=== PATIENT | male | born 1975 | race Caucasian/White ===

== ENCOUNTER 2018-06-03 06:06 | Inpatient (IN) | payer OTHER ==
[2018-06-03] MEDS ORDERED: NS 1,000 ML IV ONE ×4 (06:08→15:58)
[2018-06-03] MEDS ORDERED: DEXAMETHASONE 10 MG/ML VIAL IVP ONE (06:08)
[2018-06-03] MEDS ORDERED: KETOROLAC 15 MG/1 ML SDV ONE (06:08)
[2018-06-03] MEDS ORDERED: KETOROLAC 15 MG/1 ML SDV IVP ONE (06:08)
[2018-06-03] MEDS ORDERED: ONDANSETRON 4 MG/2 ML VIAL IVP ONE ×2 (06:08→08:52)
[2018-06-03] MEDS ORDERED: HYDROmorphONE/DILAUDID 1 MG/ML INJ ONE (06:08)
[2018-06-03] MEDS ORDERED: HYDROmorphONE/DILAUDID 2 MG/ML INJ IVP ONE ×3 (06:08→08:41)
--- NOTE | 2018-06-03 06:12 | EDPHY ---
H & P Source: Patient, EMS Time Seen by Provider: 06/03/18 06:09 HPI/ROS: HPI CHIEF COMPLAINT: Lumbar back pain. HISTORY OF PRESENT ILLNESS: 43-year-old male, otherwise healthy without any significant medical history presents emergency room with lumbar back pain. Patient states this started approximately an hour ago at 5:00 a.m. He woke from sleep. It is sharp stabbing rather constant lumbar region paravertebral on the left side. It does not radiate down his left leg. It does not go to his groin. It does not radiate to his abdomen. Patient states this started spontaneously and woke him from sleep. He denies any chest pain shortness of breath, denies any abdominal pain. Main complaint severe sharp stabbing lumbar back pain paravertebral on the left side. He has never had this before Patient does state he was playing basketball last night and did have occlusion with another player where he struck his knee against their knee. But at that time had no back pain. Here in emergency room he has no fever, no saddle anesthesia, no leg weakness, no numbness or tingling. Past Medical History: Denies medical history Past Surgical History: Denies surgical history Social History: Denies drugs alcohol tobacco. Family History: Noncontributory ROS REVIEW OF SYSTEMS: 10 Systems were reviewed and negative with the exception of the elements mentioned in the history of present illness. Exam Constitutional nontoxic triage nursing summary reviewed, vital signs reviewed, awake/alert. , vital signs reviewed Eyes normal conjunctivae and sclera, EOMI, PERRLA. HENT normal inspection, atraumatic, moist mucus membranes, no epistaxis, neck supple/ no meningismus, no raccoon eyes. Respiratory clear to auscultation bilaterally, normal breath sounds, no respiratory distress, no wheezing. Cardiovascular rate normal, regular rhythm, no murmur, no edema, distal pulses normal. Gastrointestinal soft, non-tender, no rebound, no guarding, normal bowel sounds, no distension, no pulsatile mass. Genitourinary no CVA tenderness. Musculoskeletal focal tenderness paravertebral lumbar spine left-sided. full range of motion, no calf swelling, no tenderness of extremities, no meningismus , good pulses, neurovascularly intact. Skin pink, warm, & dry, no rash, skin atraumatic. Neurologic awake, alert and oriented x 3, AAOx3, moves all 4 extremities equally, motor intact, sensory intact, CN II-XII intact, normal cerebellar, normal vision, normal speech. Psychiatric normal mood/affect. Heme/Lymph/Immune no lymphadenopathy. Differential Diagnosis: Includes but is not limited to in a particular order lumbar strain, disc herniation, annular tear, compression fracture, nerve root compression Medical Decision Making: Plan for this patient IV establishment fluid bolus, IV Decadron, IV Toradol, IV Dilaudid for pain control. Basic blood work, MRI lumbar spine. Re-evaluate. Re-evaluation: 0700AM: Signed over to Dr. Babcock. Patient pending lab work and MRI spine and Re-eval. (Kike Fernandes) Constitutional: Initial Vital Signs Temperature (C) 36.6 C 06/03/18 06:08 Heart Rate 76 06/03/18 06:08 Respiratory Rate 16 06/03/18 06:08 Blood Pressure 104/75 06/03/18 06:08 O2 Sat (%) 96 06/03/18 06:08 O2 Delivery Mode Room Air O2 (L/minute) 2 Allergies/Adverse Reactions: No Known Allergies Allergy (Unverified 06/03/18 06:12) Home Medications: Medication Instructions Recorded NK [No Known Home Meds] 06/03/18 Medical Decision Making - Diagnostics Imaging Results: Imaging Impressions Lumbar Spine MRI 06/03/18 06:08 Impression: Early degenerative disk disease at L3-L4 through L5-S1 with small left posterolateral protrusion and annular tear at L4-L5 and small left parasagittal protrusion at L5-S1 causing no significant mass effect as above. Results called and discussed with Dr. Lyndon Babcock at 06/03/2018 at 8:29 a.m. Abdomen/Pelvis CT 06/03/18 08:52 Impression: Small distal left ureteral stone, about to pass into the urinary bladder. Results called to Dr. Lyndon Babcock at 9:20 am. General information for patients regarding this examination can be found at [email or web address]. If you have questions or comments about this report, please contact me at (hospital) or [phone] (cell). MRI lumbar spine reviewed by me and discussed with Dr. Tomlinson shows a small left posterior lateral protrusion and annular tear at L4-L5. Small true garcia at L5-S1. No significant encroachment or compression of the spinal canal ( Lyndon Babcock) ED Course/Re-evaluation: Re-evaluation by me at 8:45 a.m.. The patient and I discussed imaging study results. Patient is nauseated and has some vomiting. He sits up without difficulty to vomit. The tells me that he had a urinary tract infection several months ago and manifested as blood in his urine. Exam shows tenderness not at L4-5 but a little bit higher and more on the flank. Maybe a little bit of discomfort in the left lower quadrant. Patient has had 2 L of saline but no urination. I am suspicious that this may be kidney stone. Patient has a kidney stone. He and his and I discussed imaging study results, treatment plan including recommendation for admission. They expressed understanding and agreement. Patient continues to have pain. He has not urinated yet after 2 L I consulted and discussed the case with Dr. Renee, hospitalist, who agrees to the admission (Lyndon Babcock) Differential Diagnosis: I considered HNP, cauda equina syndrome, kidney stone, pyelonephritis (Lyndon Babcock) - Data Points Laboratory Results: Laboratory Results 06/03/18 06:30 06/03/18 06:30 06/03/18 06/03/18 06:30 06:30 WBC 8.03 10^3/uL 10^3/uL (3.80-9.50) RBC 4.98 10^6/uL 10^6/uL (4.40-6.38) Hgb 14.5 g/dL g/dL (13.7-17.5) Hct 42.7 % % (40.0-51.0) MCV 85.7 fL fL (81.5-99.8) MCH 29.1 pg pg (27.9-34.1) MCHC 34.0 g/dL g/dL (32.4-36.7) RDW 11.8 % % (11.5-15.2) Plt Count 156 10^3/uL 10^3/uL (150-400) MPV 10.8 fL fL (8.7-11.7) Neut % (Auto) 54.1 % % (39.3-74.2) Lymph % (Auto) 35.7 % % (15.0-45.0) [place] % (Auto) 9.0 % % (4.5-13.0) Eos % (Auto) 0.6 % % (0.6-7.6) Baso % (Auto) 0.4 % % (0.3-1.7) Nucleat RBC Rel Count 0.0 % % (0.0-0.2) Absolute Neuts (auto) 4.34 10^3/uL 10^3/uL (1.70-6.50) Absolute Lymphs (auto) 2.87 10^3/uL 10^3/uL (1.00-3.00) Absolute Monos (auto) 0.72 10^3/uL 10^3/uL (0.30-0.80) Absolute Eos (auto) 0.05 10^3/uL 10^3/uL (0.03-0.40) Absolute Basos (auto) 0.03 10^3/uL 10^3/uL (0.02-0.10) Absolute Nucleated RBC 0.00 10^3/uL 10^3/uL (0-0.01) Immature Gran % 0.2 % % (0.0-1.1) Immature Gran # 0.02 10^3/uL 10^3/uL (0.00-0.10) Sodium 141 mEq/L mEq/L (135-145) Potassium 4.1 mEq/L mEq/L (3.3-5.0) Chloride 112 mEq/L H mEq/L (97-110) Carbon Dioxide 21 mEq/l L mEq/l (22-31) Anion Gap 8 mEq/L mEq/L (6-14) BUN 20 mg/dL mg/dL (7-23) Creatinine 1.1 mg/dL mg/dL (0.7-1.3) Estimated GFR > 60 Glucose 100 mg/dL mg/dL (70-100) Calcium 8.9 mg/dL mg/dL (8.5-10.4) Medications Given: Discontinued Medications Dexamethasone (Decadron Injection) 10 mg IVP EDNOW ONE Stop: 06/03/18 06:09 Last Admin: 06/03/18 06:27 Dose: 10 mg Hydromorphone HCl (Dilaudid) 1 mg IVP EDNOW ONE Stop: 06/03/18 06:09 Last Admin: 06/03/18 06:12 Dose: 1 mg Hydromorphone HCl (Dilaudid) 1 mg IVP EDNOW ONE Stop: 06/03/18 07:35 Last Admin: 06/03/18 07:41 Dose: 1 mg Hydromorphone HCl (Dilaudid) 0.5 mg IVP EDNOW ONE Stop: 06/03/18 08:42 Last Admin: 06/03/18 08:47 Dose: 0.5 mg Sodium Chloride (Ns) 1,000 mls @ 0 mls/hr IV EDNOW ONE; Wide Open PRN Reason: Protocol Stop: 06/03/18 06:09 Last Admin: 06/03/18 06:15 Dose: 1,000 mls Sodium Chloride (Ns) 1,000 mls @ 0 mls/hr IV EDNOW ONE; Wide Open PRN Reason: Protocol Stop: 06/03/18 07:35 Last Admin: 06/03/18 07:41 Dose: 1,000 mls Ketorolac Tromethamine (Toradol) 15 mg IVP EDNOW ONE Stop: 06/03/18 06:09 Last Admin: 06/03/18 06:12 Dose: 15 mg Ondansetron HCl (Zofran) 4 mg IVP EDNOW ONE Stop: 06/03/18 06:09 Last Admin: 06/03/18 06:12 Dose: 4 mg Ondansetron HCl (Zofran) 4 mg IVP EDNOW ONE Stop: 06/03/18 08:53 Last Admin: 06/03/18 08:56 Dose: 4 mg Departure - Departure Disposition: [facility] Clinical Impression: Kidney stone on left side Condition: Fair Referrals: Patient,NotPresent [Unknown] - As per Instructions
[2018-06-03] MEDS ORDERED: DEXAMETHASONE 4 MG/ML VIAL ONE (06:25)
[2018-06-03 06:42] LABS: PLATELET COUNT 156 10^3/uL (150-400)
[2018-06-03] MEDS ORDERED: NS W/ 20 KCl/L 1,000 ML IV SCH (10:00)
--- NOTE | 2018-06-03 10:55 | ASMTCMCOM ---
CM Note CM Note Notes: Chart reviewed for dc planning purposes. 43 year old male admitted via ED for c/o back pain. Kidney stone on CT ready to pass into bladder. Pain management. No other needs identified at this time. CM available should other needs arise. Plan: Likely to dc independently when medically cleared for discharge. Date Signed: 06/03/2018 10:54 AM Electronically Signed By:Gill Corey RN
[2018-06-03] MEDS: HYDROmorphONE/DILAUDID 1 MG/ML INJ IVP PRN ×4 (11:26→18:09)
[2018-06-03] MEDS ORDERED: ACETAMINOPHEN 325 MG TAB PO PRN (12:05)
[2018-06-03] MEDS ORDERED: ONDANSETRON DISINTEGRATING 4 MG TAB PO PRN (12:05)
[2018-06-03] MEDS ORDERED: ONDANSETRON 4 MG/2 ML VIAL IVP PRN (12:05)
[2018-06-03] MEDS: KETOROLAC 15 MG/1 ML SDV IVP SCH ×2 (12:24→17:38)
[2018-06-03] MEDS: TAMSULOSIN HCL 0.4 MG CAP PO SCH (12:24)
[2018-06-03] MEDS: oxyCODONE IR 5 MG TAB PO PRN ×3 (16:45→22:18)
[2018-06-03] MEDS: NS 1,000 ML IV SCH ×2 (18:09→23:28)
--- NOTE | 2018-06-03 18:13 | PDGENHP ---
History and Physical - Chief Complaint left back pain, malaise - History of Present Illness 43 yo male who presented to the emergency department this morning shortly after waking up in the middle of the night with severe left lower back pain. He is previously healthy. He says that he had intense exercise yesterday playing basketball but only for about 30 minutes. He does not typically play basketball or exercise. He did not have any trauma. He presented to the ER and imaging was c/w a 3.5mm x 3.5 mm. 2.7mm left ureteral stone, otherwise unremarkable findings. He also had a lumbar MRI that does not show significant pathology or nerve impingement. In the ER he was given 2 L of NS but he has been unable to urinate since 6 a.m. this morning. He reports left flank pain as well as some left sided abd cramping. He denies IV drug use. He denies fevers. He denies diarrhea. labs are c/w no leukocytosis, no elevated cr, normal electrolytes He denies hematuria, urinary frequency, or dysuria. UA is unremarkabel. He denies fever. He denies cp, sob, palpitations, or leg swelling. He denies focal neurological weakness. Past Medical History: Denies medical history Past Surgical History: Denies surgical history Social History: Denies drugs alcohol tobacco. Family History: Noncontributory History Information - Allergies/Home Medication List Allergies/Adverse Reactions: No Known Allergies Allergy (Verified 06/03/18 09:59) Home Medications: NK [No Known Home Meds] 06/03/18 [Last Taken Unknown] I have personally reviewed and updated: medical history, social history - Social History Smoking Status: Never smoked Review of Systems Review of Systems: ROS: 10pt was reviewed & negative except for what was stated in HPI & below Physical Exam Physical Exam: Temp Pulse Resp BP Pulse Ox 36.9 C 76 16 130/78 H 95 06/03/18 11:22 06/03/18 16:58 06/03/18 16:58 06/03/18 16:58 06/03/18 16:58 O2 (L/minute) 2 Constitutional: no apparent distress Eyes: PERRL Ears, Nose, Mouth, Throat: dry mucous membranes Cardiovascular: regular rate and rhythym, no murmur, rub, or gallop, No edema Respiratory: no respiratory distress, no rales or rhonchi, clear to auscultation Gastrointestinal: normoactive bowel sounds, soft, non-tender abdomen, No guarding, No rebound, No distension Skin: warm Musculoskeletal: other (left cva tenderness) Neurologic: AAOx3 Psychiatric: interacting appropriately, not anxious, not encephalopathic Lab Data & Imaging Review 06/03/18 06:30 06/03/18 16:55 WBC 8.03 10^3/uL (3.80-9.50) 06/03/18 06:30 RBC 4.98 10^6/uL (4.40-6.38) 06/03/18 06:30 Hgb 14.5 g/dL (13.7-17.5) 06/03/18 06:30 Hct 42.7 % (40.0-51.0) 06/03/18 06:30 MCV 85.7 fL (81.5-99.8) 06/03/18 06:30 MCH 29.1 pg (27.9-34.1) 06/03/18 06:30 MCHC 34.0 g/dL (32.4-36.7) 06/03/18 06:30 RDW 11.8 % (11.5-15.2) 06/03/18 06:30 Plt Count 156 10^3/uL (150-400) 06/03/18 06:30 MPV 10.8 fL (8.7-11.7) 06/03/18 06:30 Neut % (Auto) 54.1 % (39.3-74.2) 06/03/18 06:30 Lymph % (Auto) 35.7 % (15.0-45.0) 06/03/18 06:30 [place] % (Auto) 9.0 % (4.5-13.0) 06/03/18 06:30 Eos % (Auto) 0.6 % (0.6-7.6) 06/03/18 06:30 Baso % (Auto) 0.4 % (0.3-1.7) 06/03/18 06:30 Nucleat RBC Rel Count 0.0 % (0.0-0.2) 06/03/18 06:30 Absolute Neuts (auto) 4.34 10^3/uL (1.70-6.50) 06/03/18 06:30 Absolute Lymphs (auto) 2.87 10^3/uL (1.00-3.00) 06/03/18 06:30 Absolute Monos (auto) 0.72 10^3/uL (0.30-0.80) 06/03/18 06:30 Absolute Eos (auto) 0.05 10^3/uL (0.03-0.40) 06/03/18 06:30 Absolute Basos (auto) 0.03 10^3/uL (0.02-0.10) 06/03/18 06:30 Absolute Nucleated RBC 0.00 10^3/uL (0-0.01) 06/03/18 06:30 Immature Gran % 0.2 % (0.0-1.1) 06/03/18 06:30 Immature Gran # 0.02 10^3/uL (0.00-0.10) 06/03/18 06:30 Sodium 138 mEq/L (135-145) 06/03/18 16:55 Potassium 5.0 mEq/L (3.3-5.0) 06/03/18 16:55 Chloride 109 mEq/L (97-110) 06/03/18 16:55 Carbon Dioxide 19 mEq/l (22-31) L 06/03/18 16:55 Anion Gap 10 mEq/L (6-14) 06/03/18 16:55 BUN 18 mg/dL (7-23) 06/03/18 16:55 Creatinine 1.4 mg/dL (0.7-1.3) H 06/03/18 16:55 Estimated GFR 55 06/03/18 16:55 Glucose 140 mg/dL (70-100) H 06/03/18 16:55 Calcium 8.5 mg/dL (8.5-10.4) 06/03/18 16:55 Urine Color YELLOW 06/03/18 17:30 Urine Appearance HAZY 06/03/18 17:30 Urine pH 5.0 (5.0-7.5) 06/03/18 17:30 Ur Specific [place] 1.023 (1.002-1.030) 06/03/18 17:30 Urine Protein NEGATIVE (NEGATIVE) 06/03/18 17:30 Urine Ketones TRACE (NEGATIVE) H 06/03/18 17:30 Urine Blood 1+ (NEGATIVE) H 06/03/18 17:30 Urine Nitrate NEGATIVE (NEGATIVE) 06/03/18 17:30 Urine Bilirubin NEGATIVE (NEGATIVE) 06/03/18 17:30 Urine Urobilinogen NEGATIVE EU (0.2-1.0) 06/03/18 17:30 Ur Leukocyte Esterase NEGATIVE (NEGATIVE) 06/03/18 17:30 Urine RBC 5-10 /hpf (0-3) H 06/03/18 17:30 Urine WBC 1-3 /hpf (0-3) 06/03/18 17:30 Ur Epithelial Cells TRACE /lpf (NONE-1+) 06/03/18 17:30 Urine Mucus TRACE /lpf (NONE-1+) 06/03/18 17:30 Urine Glucose 1+ (NEGATIVE) H 06/03/18 17:30 Assessment & Plan Assessment: 43 yo male with left ureteral stone and severe dehydration. The dehydration does not correlate with having his symptoms start this morning. He was given 2 L of NS without urinating. I ordered 2 additional IVS stat and he has now urinated near 400 ml. His labs were repeated and they are now c/w a Cr. of 1.4. He does not have any e/o of infection (UA is unremarkable, no Leukocytosis) and VSS. His abd and back pain are improving. He is hemodynamically stable. He has tolerated 4 L of NS w/o difficulties, no resp symptoms We will cont with IVF, pain mgmt, Tamsulosin, and straining the urine. If sx's cont, we will obtain a Urology consult. In addition, a urine tox has been sent. Toradol has been held. Urine studies have been sent. #Left Ureteral Stone #Severe Dehydration #Abd Pain #Acute Kidney Injury, likely prerenal. total critical care time spent managing this pt with severe dehydration and no urine output is 95 mins
[2018-06-03] MEDS ORDERED: HYDROmorphONE/DILAUDID 1 MG/ML INJ IVP PRN (19:53)
[2018-06-04] MEDS: NS 1,000 ML IV SCH (04:36)
[2018-06-04 05:00] LABS: PLATELET COUNT 116 10^3/uL (150-400)
[2018-06-04] MEDS: TAMSULOSIN HCL 0.4 MG CAP PO SCH (10:05)
--- NOTE | 2018-06-04 13:07 | HOSPPROG ---
Hospitalist Progress Note Assessment/Plan: 43 yo male with left ureteral stone and severe dehydration. He was oliguric despite several liters of IVF and was found to have KIMBERLY. Fortunately he appears to have responded to the additional IVF. He is making a moderate amount of dilute urine. His eft sided flank pain or abd pain are improving but urine straining has not revealed a stone. Stone may have passed into the bladder. His labs today are consistent with rising Cr. He does have some pedal edema Today, he will be kept overnight for additional pain mgmt, strict I's and O's, and monitoring and encouragement of fluid intake. For now, I will not give him any additional IVF unless there is recurrence of the oliguria. Nursing will cont to strain urine. Cont Flomax He has a flight to [place] on Wednesday and he is hoping to make this. #Left Ureteral Stone #Severe Dehydration #Abd Pain #Acute Kidney Injury, FeNA is 1.1 Subjective: making urine, voiding freely, has leg swelling. Objective: Vital Signs Temp Pulse Resp BP Pulse Ox 36.3 C 63 16 121/78 H 94 06/04/18 08:00 06/04/18 08:00 06/04/18 08:00 06/04/18 08:00 06/04/18 08:00 Laboratory Results 06/04/18 04:43 06/04/18 12:00 06/03/18 06/04/18 06/05/18 05:59 05:59 05:59 Intake Total 7520 Output Total 900 300 Balance 6620 -300 - Physical Exam Constitutional: no apparent distress Eyes: PERRL Ears, Nose, Mouth, Throat: moist mucous membranes, hearing normal Cardiovascular: regular rate and rhythym Respiratory: no respiratory distress, no rales or rhonchi Gastrointestinal: normoactive bowel sounds, soft, non-tender abdomen Skin: warm Neurologic: AAOx3 Psychiatric: interacting appropriately, not anxious, not encephalopathic Lymph, Heme, Immunologic: No petechiae ICD10 Worksheet Patient Problems: Problems Problem Status Onset Kidney stone on left side Acute
[2018-06-05] MEDS ORDERED: MAGNESIUM HYDROXIDE 30 ML UDCUP PO PRN (00:11)
[2018-06-05] MEDS ORDERED: POLYETHYLENE GLYCOL 3350 17 GM PKT PO PRN (00:11)
[2018-06-05] MEDS ORDERED: BISACODYL 10 MG SUPP PR PRN (00:11)
[2018-06-05] MEDS ORDERED: LACTULOSE 20 GM/30 ML UDCUP PO PRN (00:11)
[2018-06-05] MEDS: SENNOSIDES/DOCUSATE SODIUM TAB PO SCH ×2 (04:27→04:37)
[2018-06-05 08:04] VITALS: BP 137/76
--- NOTE | 2018-06-05 08:29 | PDMN ---
Medical Necessity Medical necessity: MCG: M123 dehydration: pt presents with severe L lower back pain, anuria X 12 hours, found to have L ureteral stone, KIMBERLY, severe dehydration, ongoing needs for IV fluids, close monitoring > 2 MN.
--- NOTE | 2018-06-05 10:33 | ASMTLACE ---
LACE Length of stay for Answers: 2 days current admission Comorbidities - select Answers: Other Notes: kidney stone all that apply # of Emergency department Answers: 1-2 visits in the last 6 months Score: 4 Date Signed: 06/05/2018 10:32 AM Electronically Signed By:Gill Corey RN
--- NOTE | 2018-06-05 10:33 | ASDISCHSUM ---
Discharge Information Plan Status:Home with No Needs Medically Cleared to Leave:06/05/2018 Discharge Date:06/05/2018 CM D/C Disposition:Home, Routine, Self-Care ADT D/C Disposition:Home, Routine, Self-Care Projected Discharge Date:06/05/2018 Transportation at D/C: Discharge Delay Reason: Follow-Up Date:06/05/2018 Discharge Slot: Final Diagnosis: Placement Information Patient Contact Information Contact Name:KAELA Relationship: Address: Home Phone: Work Phone: City: Alternate Phone: State/[place] Code: Email: Financial Information Financial Class:BCOP Primary Plan Desc:[facility] Primary Plan Number:[id number] Secondary Plan Desc: Secondary Plan Number: Assessment Information [facility] CM Progress Note CM Note CM Note Notes: Chart reviewed for dc planning purposes. 43 year old male admitted via ED for c/o back pain. Kidney stone on CT ready to pass into bladder. Pain management. No other needs identified at this time. CM available should other needs arise. Plan: Likely to dc independently when medically cleared for discharge. Date Signed: 06/03/2018 10:54 AM Electronically Signed By:Gill Corey RN Intervention Information
--- NOTE | 2018-06-05 10:34 | ASMTCMCOM ---
CM Note CM Note Notes: Medically cleared for discharge to home. No needs identified. CM available should any needs arise. Plan: Home independently. Date Signed: 06/05/2018 10:34 AM Electronically Signed By:Gill Corey RN
--- NOTE | 2018-06-05 10:42 | GDS ---
DISCHARGE DIAGNOSES: 1. Acute kidney injury. 2. Left ureteral stone. HISTORY OF PRESENT ILLNESS: A 43-year-old male with no past medical history presented with severe le ft lower back pain. He had played some intense basketball the day prior, but only for 30 minutes. H e denies any trauma. CT in the ER showed a 3.5 mm x 3.5 mm x 2.7 mm left ureteral stone. He also mijares d a lumbar MRI that did not show significant pathology. In the ER, he was given 2 L of NS, but was u nable to urinate since that morning. HOSPITAL COURSE: 1. Oliguric acute kidney injury, secondary to severe dehydration: He had a nonobstructing left uret eral stone, which now may have passed into the bladder. Has strained and has not found. Currently d enies any pain. He is urinating without issue. Creatinine is now 1.3. Recommend drinking plenty of fluids because I expect auto-diuresis. Advised to avoid nonsteroidal anti-inflammatory drug. If he is not feeling well tomorrow, he should have his BMP checked by his PCP. 2. Left ureteral stone: Again, may have passed. At this point, he denies any pain. Kidney functio n is improved and UA is negative. DISPOSITION: Patient is stable for discharge. DISCHARGE MEDICATIONS: No new medications. Avoid NSAIDs. FOLLOWUP: With primary care physician. PHYSICAL EXAMINATION: VITAL SIGNS: Today, temperature 36.9, blood pressure 137/76, heart rate in th e 80s, respiration 14, 92% on . GENERAL: Well appearing, in no acute distress. HEENT: P ERRLA. Moist mucous membranes. CV: Regular rate and rhythm. LUNGS: Clear. ABDOMEN: Soft, nonte nder, nondistended. Positive bowel sounds. : No [place]. No CVA tenderness. MUSCULOSKELETAL: 5/ 5 upper and lower extremities. NEUROLOGIC: 2 through 12 intact. PSYCH: Alert and oriented x3. Time spent on discharge: Greater than 30 minutes at bedside counseling patient on followup, hydratio n, and medications. /[id number]/MODL
== END 2018-06-05 10:37 | disposition home or self-care (01) | DRG 694 ==
LOC: EDUNIT# → F1N 10:43
PROVIDERS: ADMIT Family Medicine; ATTEND Internal Medicine
DX: N20.1 Calculus of ureter (principal); E86.0 Dehydration; N17.9 Acute kidney failure, unspecified; M51.86 Other intervertebral disc disorders, lumbar region
CPT/HCPCS: 80307; 96374; G0480; J1100; J1170; J1885; J2405